=== PATIENT | male | born 1950 | race Caucasian/White ===

== ENCOUNTER 2023-03-01 11:20 | Outpatient (OUT) | payer MEDICARE, OTHER, SELFPAY ==
--- NOTE | 2023-03-01 11:25 | MR_ITS ---
[place] [id number] Patient Name: JAVIER BEAUCHAMP MRN: [id number] date: 1950 Sex: M Assigned Patient Location: LAB Current Patient Location: LAB Accession/Order Number: [id number] Exam Date: 03/01/2023 12:05 Report Date: 03/01/2023 13:58 At the request of: NON-STAFF PHYSICIAN Procedure: MR lumbar spine wo/w con MRI LUMBAR SPINE WITH AND WITHOUT CONTRAST, 03/01/2023. HISTORY: Lumbar radiculopathy. Low back pain. Hip pain. Previous lumbar spine surgery. COMPARISON: None. TECHNIQUE: Multiplanar, multisequence MRI imaging of the lumbar spine with and without contrast. FINDINGS: There are postoperative changes from pedicle screw and forrest fixation at L4-5 and L5-S1. There is good fusion across the facet joints at these levels. Alignment appears normal. No spondylolisthesis. No acute compression fracture. Signal in the bone marrow spaces is normal. No bone marrow edema. L5-S1, spinal canal is decompressed. There is no spinal stenosis. No foraminal narrowing. L4-5, there is good osseous fusion at this level. The spinal canal is decompressed. No spinal stenosis. No significant foraminal narrowing. L3-4, mild degenerative disc disease. No spinal canal stenosis. No foraminal narrowing. L2-3, severe facet arthropathy. There is facet hypertrophy and ligamentum flavum thickening. Moderate degenerative disc disease. Diffuse disc bulge. There is moderate spinal canal stenosis. Mild bilateral foraminal narrowing. L1-2, mild degenerative disc disease. No spinal stenosis. No foraminal narrowing. No abnormal signal or pathologic enhancement in the conus medullaris. No pathologic enhancement of the cauda equina. No paraspinal masses. MR/MR lumbar spine wo/w con IMPRESSION: 1. There are postoperative changes from previous posterior lumbar fixation and fusion at L4-5 and L5-S1. There is good fusion at these levels. No spinal stenosis or foraminal narrowing. 2. At L2-3, there is severe facet arthropathy and moderate degenerative disc disease. There is disc bulge as well as facet hypertrophy and ligamentum flavum thickening. Moderate spinal stenosis and mild bilateral foraminal narrowing. 3. No acute compression fractures. No pathologic enhancement. Electronically authenticated by: LAURITA CAMERON Date: 03/01/2023 13:58
--- NOTE | 2023-03-01 11:31 | XR_ITS ---
The [address] [address] Patient Name: JAVIER BEAUCHAMP MRN: [id number] date: 1950 Sex: M Assigned Patient Location: LAB Current Patient Location: LAB Accession/Order Number: [id number] Exam Date: 03/01/2023 11:47 Report Date: 03/01/2023 12:06 At the request of: NON-STAFF PHYSICIAN Procedure: XR lumbar spine 2-3V EXAMINATION: XR lumbar spine 2-3V HISTORY: Bilateral Hip Pain M25.551, M25.552 COMPARISON: No relevant comparison available. FINDINGS: BONES: Normal alignment with no acute fracture or spondylolisthesis. Posterior decompression bilateral transpedicular fusion L4-S1. No mechanical failure. Moderate degenerative spondylosis and facet osteoarthropathy DISC SPACES: Fusion L4-5 and L5-S1 PARASPINOUS: Negative. No paraspinous abnormality is seen. OTHER: Vascular calcifications XR/XR lumbar spine 2-3V IMPRESSION: Moderate degenerative changes with lumbosacral fusion Electronically authenticated by: KAITLYN RENTERIA Date: 03/01/2023 12:06
--- NOTE | 2023-03-01 11:31 | XR_ITS ---
The [address] [address] Patient Name: JAVIER BEAUCHAMP MRN: [id number] date: 1950 Sex: M Assigned Patient Location: LAB Current Patient Location: LAB Accession/Order Number: [id number] Exam Date: 03/01/2023 11:47 Report Date: 03/01/2023 12:05 At the request of: NON-STAFF PHYSICIAN Procedure: XR hip BETSEY EXAMINATION: XR hip BETSEY HISTORY: Bilateral Hip Pain M25.551, M25.552 COMPARISON: No relevant comparison available. FINDINGS: RIGHT FINDINGS: BONES: No acute fracture or dislocation. Moderate osteoarthropathy with joint space narrowing and marginal osteophyte formation SOFT TISSUES: Negative. No visible soft tissue swelling. OTHER: Negative. LEFT FINDINGS: BONES: No acute fracture or dislocation. Moderate osteoarthropathy with joint space narrowing and marginal osteophyte formation SOFT TISSUES: Negative. No visible soft tissue swelling. OTHER: Negative. XR/XR hip BETSEY IMPRESSION: RIGHT CONCLUSION: Moderate osteoarthritis LEFT CONCLUSION: Moderate osteoarthritis Electronically authenticated by: KAITLYN RENTERIA Date: 03/01/2023 12:05
[2023-03-01 11:35] LABS: Estimated GFR (African America 53 (>=60); Estimated GFR (Non-African Ame 44 (>=60)
== END 2023-03-01 11:21 | disposition home or self-care (01) ==
LOC: LAB 11:20
PROVIDERS: PCP Physician Assistant
DX: M96.1 Postlaminectomy syndrome, not elsewhere classified (principal); M51.36 Other intervertebral disc degeneration, lumbar region
CPT/HCPCS: 36415; 72100; 72158; 73522; 82565; A9575

== ENCOUNTER 2025-02-09 15:20 | Outpatient (OUT) | payer MEDICARE, SELFPAY ==
--- OUTSIDE RECORDS SUMMARY | 2024-01-13 11:30 | XMS_ITS ---
Author Organization [facility] vices Address [address] [place], [place] [address] Care Team Providers Care Watch Dial Stoner Name Role Phone Maura Raymond Primary Care Provider REASON FOR VISIT 3 month DM Social History Sex Assigned At : Social History Observation Description Sex Assigned At Male Encounters Encounter Location Date Provider Diagnosis Main [address] [place], [place] [id number] 01/13/2024 Maura Raymond Plan Of Treatment Next Appt Details Provider Name:Maura Raymond, 02/22/2025 02:30:00 PM, [address] [place], [place], [id number], Progress Notes * Damián VIDAL CDOB: [birth year] (74 yo M)Acc No.[id number]:01/13/2024 Medical Note Patient: Marcos Damián mendez :?Maura Raymond MDDOB:1950???Age:73 Y???Sex: MaleDate:01/13/2024hone:[phone]:[address] [place], [place] Subjective: * Chief Complaints: * 3 month DM Billing Information: * Procedure Codes: * Electronic signature of Maura Raymond MD on 02/09/2025 at 03:28 PM ESTSign off status: Pending * Provider: Zuri Raymond MD Date: 03/15/2023 Generated for Printing/Faxing/eTransmitting on:?02/09/2025 03:28 PM EST
--- OUTSIDE RECORDS SUMMARY | 2025-02-08 07:17 | XMS_ITS | Encounter Summary ---
Author Organization [facility] tem Address [id number] [address] [place] [address] Care Team Providers Care Pin Pusher Name Role Phone Maura Raymond MD Primary Care Provider [phone] Reason for Visit * Auth/Cert (Routine)SpecialtyDiagnoses / ProceduresReferred By ContactReferred To Contact Referral IDStatusReasonStart DateExpiration DateVisits RequestedVisits [id number] Encounter Details DateTypeDepartmentCare Team (Latest Contact Info)Fguuibrbwij08/29/2025 7:17 AM ESTHospital Encounter [facility] [address] [place] [address] Arrived Social History Tobacco UseTypesPacks/DayYears UsedDateSmoking Tobacco: YvvtpbLobtzjqqcn1Rvhl: 08/16/1993Smokeless Tobacco: NeverAlcohol UseStandard Drinks/WeekCommentsYes0 (1 standard drink = 0.6 oz pure alcohol)rarelyChildcareAnswerDate RecordedChildcare Afvnhjb9907/23/2018EmploymentAnswerDate KjdsmevnVlfnzxipanRtajbhn20/12/2019Hunger ScreeningAnswerDate RecordedWithin the past 12 months we worried whether our food would run out before we got money to buy more.Never True01/13/2025Within the past 12 months the food we bought just didn't last and we didn't have money to get more.Never True01/13/2025Purpose - LifeAnswerDate RecordedPurpose and direction in vngjZqvhryk97/11/2021ex and Gender InformationValueDate Recorded Sex Assigned at BirthNot on fileLegal JobXmdu2709/16/2014 11:46 AM EDTGender IdentityNot on fileSexual OrientationNot on filedocumented as of this encounter Plan of Treatment DateTypeDepartmentCare Team (Latest Contact Info)Gphuhfdckwd28/20/2026 1:30 PM ESTOffice Visit [facility] [address] [place] [address] Maykel Islas MD [address] [place] [address] documented as of this encounter Procedures Procedure NamePriorityDate/TimeAssociated DiagnosisCommentsNUC STRESS LEXISCAN Fniuxfl4702/08/2025 10:39 AM EST Chest discomfort documented in this encounter Results * Nuc stress Lexiscan (02/08/2025 10:39 AM EST)ComponentValueRef RangeTest MethodAnalysis TimePerformed AtPathologist SignatureTarget TR511mcdTQWHSATWFH LT80zdjKWPCNPPSJASlmqja peak VE37cxsFEMRKHHYSAXyuthacv Systolic BM093eeNo SECTRAIECGDiastolic SU44zhZdUEPQHXHQYKDlngbu peak systolic IT661xgHoHVZGMESNHH Diastolic CG96avGuAXWDPAOFGUDI41zrvTOFNKZKUKWEkqsjl recovery systolic BP149 mmHgSECTRAIECGDiastolic YY08lfLoXREKHQUCFDDzkjwkr HR56%SECTRAIECGNuc Stress EF 69%SECTRAIECGEnd diastolic volume (mL)120mLSECTRAIECGEnd systolic volume (mL) 09pKYWJCLYNLIFXFP5.19SECTRAIECGAnatomical RegionLateralityModalityChestN/A Nuclear Medicine, Nuclear MedicineSpecimen (Source)Anatomical Location / LateralityCollection Method / VolumeCollection TimeReceived Time Narrative 02/08/2025 10:08 PM EST Abnormal study with findings suggestive of stress induced myocardial ischemia in the inferior wall by SPECT MPI criteria ?Calculated LVEF 69% ?Stress ECG without evidence of stress induced myocardial ischemia by ECG criteria ?No visual evidence of transient ischemic dilatation. ??Calculated TID ratio 1.19 within normal limits. ?Summed difference score 5 suggests a moderate burden of ischemia ?At least intermediate risk study overall ?Correlate clinically ?Attenuation artifact noted; decreases sensitivity of findings Stress Findings A Lexiscan protocol was performed. A pharmacological stress test was performed using regadenoson. The patient reported dyspnea, nausea and flushing during the stress test. Symptoms began during stress and ended during recovery. Isotope Administration The isotope used for nuclear imaging was technetium sestamibi. Imaging was performed at rest after an administration on 02/08/2025 at 07:30 EST of 10.3 mCi. Imaging was performed at peak stress afteran administration on 02/08/2025 at 09:08 EST of 30.2 mCi. Nuclear Study Quality A Lexiscan protocol was performed. Perfusion Defect Conclusion TID ratio is 1.19. Stress Function Comments Stress ejection fraction is 69%. Authorizing ProviderResult TypeResult StatusRamreina Raymond [facility] [place]ESS [place]AB[place] Final Result documented in this encounter Visit Diagnoses Not on filedocumented in this encounter Care Teams Team MemberRelationshipSpecialtyStart DateEnd Date Maura Raymond MD [address] [place] [address] PCP - GeneralInternal Medicine07/10/24documented as of this encounter
--- OUTSIDE RECORDS SUMMARY | 2025-02-08 07:17 | XMS_ITS | Encounter Summary ---
Author Organization [facility] [employer] [facility] tem Address [id number] [address] [place] [address] Care Team Providers Care Real Estate Agency Licensee Name Role Phone Maura Raymond MD Primary Care Provider Reason for Referral * Cardiology (Routine) - AuthorizedSpecialtyDiagnoses / ProceduresReferred By ContactReferred To Contact Diagnoses Chest discomfort Procedures Nuc stress Lexiscan Maura Raymond MD [address] [place] [address] Phone: tel: fax: Referral IDStatusReasonStart DateExpiration DateVisits RequestedVisits [id number]/2/202512/2/202655 Reason for Visit * Auth/Cert (Routine)SpecialtyDiagnoses / ProceduresReferred By ContactReferred To Contact Referral IDStatusReasonStart DateExpiration DateVisits RequestedVisits [id number] Encounter Details DateTypeDepartmentCare Team (Latest Contact Info)Ruzvaovkfjn29/29/2025 7:17 AM ESTHospital Encounter [facility] - [facility] Imaging [address] [place] [phone] Chest discomfort Social History Tobacco UseTypesPacks/DayYears UsedDateSmoking Tobacco: UhwapmDtkiztlink3Ltpe: 08/16/1993Smokeless Tobacco: NeverAlcohol UseStandard Drinks/WeekCommentsYes0 (1 standard drink = 0.6 oz pure alcohol)rarelyChildcareAnswerDate RecordedChildcare Utgkncs6307/23/2018EmploymentAnswerDate WlvrgyffPsksypvtuaFvyivph05/12/2019Hunger ScreeningAnswerDate RecordedWithin the past 12 months we worried whether our food would run out before we got money to buy more.Never True01/13/2025Within the past 12 months the food we bought just didn't last and we didn't have money to get more.Never True01/13/2025Purpose - LifeAnswerDate RecordedPurpose and direction in misjTmlalqh75/11/2021Sex and Gender InformationValueDate Recorded Sex Assigned at BirthNot on fileLegal UzeDroo9609/16/2014 11:46 AM EDTGender IdentityNot on fileSexual OrientationNot on filedocumented as of this encounter Plan of Treatment DateTypeDepartmentCare Team (Latest Contact Info)Cxytnneccmh98/20/2026 1:30 PM ESTOffice Visit [facility] [address] [place] [phone] Maykel Islas MD [address] [place] [address] documented as of this encounter Procedures Procedure NamePriorityDate/TimeAssociated DiagnosisCommentsNUC STRESS LEXISCAN Mofvhuf5602/08/2025 10:39 AM EST Chest discomfort documented in this encounter Results * Nuc stress Lexiscan (02/08/2025 10:39 AM EST)ComponentValueRef RangeTest MethodAnalysis TimePerformed AtPathologist SignatureTarget VB928hmoNNDZINOLKB VE61eflRWJRQYBUVIBtdrch peak IR76twlTCVRQGJHUAQygneosp Systolic SN148fjTk SECTRAIECGDiastolic RF97loGaEEXIGDDXXCGqwnlr peak systolic UL018yqHnQEQXWONITP Diastolic OZ51yqDyWCZHKWWONCRO06iziDTCMGJNAZISrtcsl recovery systolic BP149 mmHgSECTRAIECGDiastolic FR44btWtFZEYUBHIGEEwhnyun HR56%SECTRAIECGNuc Stress EF 69%SECTRAIECGEnd diastolic volume (mL)120mLSECTRAIECGEnd systolic volume (mL) 49oCRFKTIEZDNRDHY2.19SECTRAIECGAnatomical RegionLateralityModalityChestN/A Nuclear Medicine, Nuclear MedicineSpecimen (Source)Anatomical Location [...] ejection fraction is 69%. Authorizing ProviderResult TypeResult StatusRamsha Segundo [facility] [place] [facility] [place] Final Result documented in this encounter Visit Diagnoses Diagnosis Chest discomfort Other chest pain documented in this encounter Administered Medications Medication OrderMAR ActionAction DateDoseRateSite kit for Tc 99m-sestamibi injection 10 millicurie 10 millicurie, intravenous, Once in imaging, contrast, Radiopharmaceutical, Starting on Sat02/08/25 at 0735, For 1 dose, Indications: diagnostic imaging Indications:diagnostic jmeljnbJxdde05/29/2025 7:30 AM EST10 millicuries kit for Tc 99m-sestamibi injection 30 millicurie 30 millicurie, intravenous, Once in imaging, contrast, Radiopharmaceutical, Starting on Sat02/08/25 at 0735, For 1 dose, Indications: diagnostic imaging Indications:diagnostic prrblstBgrch06/29/2025 9:08 AM EST30 millicuries sodium chloride 0.9 % flush 10 mL 10 mL, intravenous, Once in imaging, line care, Nuclear Medicine, Starting on Sat02/08/25 at 0735,For 1 dose Given02/08/2025 9:08 AM EST10 mL sodium chloride 0.9 % flush 10 mL 10 mL, intravenous, Once in imaging, line care, Nuclear Medicine, Starting on Sat02/08/25 at 0735,For 1 dose Given02/08/2025 7:30 AM EST10 mLdocumented in this encounter Care Teams Team MemberRelationshipSpecialtyStart DateEnd Date Maura Raymond MD [address] [place] [address] PCP - GeneralInternal Medicine07/10/24documented as of this encounter
--- OUTSIDE RECORDS SUMMARY | 2025-02-08 08:45 | XMS_ITS | Encounter Summary ---
Author Organization [facility] tem Address [id number] [address] [place] [address] Care Team Providers Care Pharmacovigilance Specialist Name Role Phone Maura Raymond MD Primary Care Provider [phone] Reason for Visit * Auth/Cert (Routine)SpecialtyDiagnoses / ProceduresReferred By ContactReferred To Contact Referral IDStatusReasonStart DateExpiration DateVisits RequestedVisits [id number] Encounter Details DateTypeDepartmentCare Team (Latest Contact Info)Kktzydljcas42/29/2025 8:45 AM EST - 02/08/2025 9:44 AM ESTHospital Encounter [facility] - Cardiovascular [address] [place] [phone] Arrived Discharge Disposition: Still a Patient Social History Tobacco UseTypesPacks/DayYears UsedDateSmoking Tobacco: AmiptkUuuodejlcv8Ilnx: 08/16/1993Smokeless Tobacco: NeverAlcohol UseStandard Drinks/WeekCommentsYes0 (1 standard drink = 0.6 oz pure alcohol)rarelyChildcareAnswerDate RecordedChildcare Gfekpjw9207/23/2018EmploymentAnswerDate HcqbfuuqYgmriojmtlPgqzpfl57/12/2019Hunger ScreeningAnswerDate RecordedWithin the past 12 months we worried whether our food would run out before we got money to buy more.Never True01/13/2025Within the past 12 months the food we bought just didn't last and we didn't have money to get more.Never True01/13/2025Purpose - LifeAnswerDate RecordedPurpose and direction in zzhiOwiaibp57/11/2021ex and Gender InformationValueDate Recorded Sex Assigned at BirthNot on fileLegal FwfUuyh3909/16/2014 11:46 AM EDTGender IdentityNot on fileSexual OrientationNot on filedocumented as of this encounter Functional Status * Samaniego Fall RiskQuestionAnswerDate of AssessmentAuthorHistory of Falling0 02/08/2025 6:28 AM Zamzam Olmstead RNSecondary Exstrcmaa0578/29/2025 6:28 AM Zamzam Olmstead RNAmbulatory Iqox748 6:28 AM Zamzam Olmstead RNIntravenous Therapy/Heparin/Saline Oimp7264 6:28 AM Zamzam Maradiaga RNGait/Oxssdchilhkh585/29/2025 6:28 AM Zamzam Olmstead RNMental Hltikq898 6:28 AM Zamzam Olmstead RNScore3502/08/2025 6:28 AM Zamzam Olmstead RN * Fall Risk ScaleQuestionAnswerDate of AssessmentAuthorFall Risk ScaleMorse Fall Risk Scale02/08/2025 6:28 AM Zamzam Olmstead RN * Respiratory (WDL)AnswerDate of AxkwjysuenGlbomtCBI12/29/2025 6:28 AM Zamzam Maradiaga RN documented as of this encounter Mental Status * Patient ID/EducationQuestionAnswerEntry DateAuthorPatient (parent/legal gaurdian) exam education completed at appropriate level of understanding - opp ortunity to ask questions offered.Yes02/08/2025 6:24 AM Zamzam Olmstead RN documented in this encounter Medications at Time of Discharge MedicationSigDispense QuantityRefillsLast FilledStart DateEnd Date amLODIPine (NORVASC) 5 mg tablet 0.5 tablets (2.5 mg total).11/23/2016 ascorbic acid, vitamin C, (VITAMIN C) 1000 mg tablet Take 1 tablet (1,000 mg total) by mouth in the morning. b complex vitamins capsule Take 1 capsule by mouth in the morning. cholecalciferol, vitamin D3, 5,000 units tablet Take 1 tablet (5,000 Units total) by mouth in the morning. cyclobenzaprine (FLEXERIL) 10 mg tablet Take 1 tablet (10 mg total) by mouth daily as needed for muscle spasms. furosemide (LASIX) 40 mg tablet Take 0.5 tablets (20 mg total) by mouth daily.03/04/2019 hydroCHLOROthiazide (HYDRODIURIL) 25 mg tablet Take 1 tablet (25 mg total) by mouth daily.03/22/2022 lisinopriL (PRINIVIL,ZESTRIL) 30 mg tablet Take 1 tablet (30 mg total) by mouth in the morning.03/22/2022 lovastatin (MEVACOR) 40 mg tablet Take 2 tablets (80 mg total) by mouth nightly.11/23/2016 lycopene/lutein/fruit extracts (FRUIT AND VEGETABLE DAILY ORAL) Take 1 tablet by mouth in the morning. meloxicam (MOBIC) 7.5 mg tablet Take 1 tablet (7.5 mg total) by mouth in the morning. 30 tablet MULTIVITAMIN ORAL Take 1 tablet by mouth in the morning. lpuswsrn-okebtcnbhXo-mcespxswS (NEOSPORIN) 3.5-400-5,000 mz-yvbo-xdsd ointment Apply 1 Application topically in the morning and 1 Application before bedtime. omega-3 fatty acids-fish oil (FISH OIL) 300-1,000 mg capsule Take 1 capsule (1 g total) by mouth in the morning. oxyCODONE-acetaminophen (PERCOCET) 5-325 mg per tablet Take 1 tablet by mouth every 12 (twelve) hours as needed for pain. potassium chloride 20 mEq tablet extended release Take 1 tablet (20 mEq total) by mouth in the morning.03/20/2019 tamsulosin (FLOMAX) 0.4 mg capsule Take 1 capsule (0.4 mg total) by mouth nightly. testosterone pellet 100 mg pellet Inject 1 each (100 mg total) under the skin once. Every 4 months VENTOLIN HFA 90 mcg/actuation inhaler 02/20/2019 vitamin E 100 units capsule Take 1 capsule (100 Units total) by mouth in the morning.documented as of this encounter Plan of Treatment DateTypeDepartmentCare Team (Latest Contact Info)Krmzyxwxntb19/20/2026 1:30 PM ESTOffice Visit [facility] [address] [place] [address] Maykel Islas MD [address] [place] [address] documented as of this encounter Procedures Procedure NamePriorityDate/TimeAssociated DiagnosisCommentsNUC STRESS LEXISCAN Hsaglzi4002/08/2025 10:39 AM EST Chest discomfort documented in this encounter Visit Diagnoses Not on filedocumented in this encounter Administered Medications Medication OrderMAR ActionAction DateDoseRateSite regadenoson (LEXISCAN) injection 0.4 mg 0.4 mg, intravenous, Once, On Sat02/08/25 at 0730, For 1 dose, Administer over 10 seconds followedby 5 mL saline flush. Given02/08/2025 9:08 AM EST0.4 mgdocumented in this encounter Care Teams Team MemberRelationshipSpecialtyStart DateEnd Date Maura Raymond MD [address] [place] [address] PCP - GeneralInternal Medicine07/10/24documented as of this encounter
--- OUTSIDE RECORDS SUMMARY | 2025-02-08 09:45 | XMS_ITS | Encounter Summary ---
Author Organization [facility] tem Address [facility] [address] [place] [address] Care Team Providers Care Adventure Guide Name Role Phone Maura Raymond MD Primary Care Provider [phone] Reason for Visit * Auth/Cert (Routine)SpecialtyDiagnoses / ProceduresReferred By ContactReferred To Contact Referral IDStatusReasonStart DateExpiration DateVisits RequestedVisits [id number] Encounter Details DateTypeDepartmentCare Team (Latest Contact Info)Tudsruoqgas98/29/2025 9:45 AM ESTHospital Encounter [facility] - Stress Imaging [address] [place] [address] Arrived Social History Tobacco UseTypesPacks/DayYears UsedDateSmoking Tobacco: NvhhxvQwetwrqmgu6Vwfi: 08/16/1993Smokeless Tobacco: NeverAlcohol UseStandard Drinks/WeekCommentsYes0 (1 standard drink = 0.6 oz pure alcohol)rarelyChildcareAnswerDate RecordedChildcare Dcvevtj4507/23/2018EmploymentAnswerDate RroszwtsXtfqjfeqozVlwloar98/12/2019Hunger ScreeningAnswerDate RecordedWithin the past 12 months we worried whether our food would run out before we got money to buy more.Never True01/13/2025Within the past 12 months the food we bought just didn't last and we didn't have money to get more.Never True01/13/2025Purpose - LifeAnswerDate RecordedPurpose and direction in vxwtBqonnbw63/11/2021ex and Gender InformationValueDate Recorded Sex Assigned at BirthNot on fileLegal UniHgmx0009/16/2014 11:46 AM EDTGender IdentityNot on fileSexual OrientationNot on filedocumented as of this encounter Plan of Treatment DateTypeDepartmentCare Team (Latest Contact Info)Ezhqnujzluh62/20/2026 1:30 PM ESTOffice Visit [facility] [address] [place] [address] Maykel Islas MD [address] [place] [address] documented as of this encounter Procedures Procedure NamePriorityDate/TimeAssociated DiagnosisCommentsNUC STRESS LEXISCAN Gcldzpz2302/08/2025 10:39 AM EST Chest discomfort documented in this encounter Results * Nuc stress Lexiscan (02/08/2025 10:39 AM EST)ComponentValueRef RangeTest MethodAnalysis TimePerformed AtPathologist SignatureTarget PX366zbbGMYECHQGCB SK83gmgOXCAZMIBPFMvqsdi peak YI96pafORFPEYQJHMIznaqfua Systolic ZI771dePg SECTRAIECGDiastolic VM15bfFjIGFKEITZSLHmyxee peak systolic EE962tpYgFQYRSALQOG Diastolic LM37ztVrQMGAXGNSEADC75tobOHRBSVQDVUPrhitd recovery systolic BP149 mmHgSECTRAIECGDiastolic OI98uwGzWNSUKSEPYJCynxnkm HR56%SECTRAIECGNuc Stress EF 69%SECTRAIECGEnd diastolic volume (mL)120mLSECTRAIECGEnd systolic volume (mL) 46yADXHSBIBEFZRFG1.19SECTRAIECGAnatomical RegionLateralityModalityChestN/A Nuclear Medicine, Nuclear MedicineSpecimen (Source)Anatomical Location [...] is 69%. Authorizing ProviderResult TypeResult StatusRamreina Raymond [facility] [place] STRESS ORDERABLES Final Result documented in this encounter Visit Diagnoses Not on filedocumented in this encounter Care Teams Team MemberRelationshipSpecialtyStart DateEnd Date Maura Raymond MD [address] [place] [address] PCP - GeneralInternal Medicine07/10/24documented as of this encounter
--- OUTSIDE RECORDS SUMMARY | 2025-02-09 15:28 | XMS_ITS | Patient Health Record ---
Author Organization [facility] in [place] Address [address] [place] [address] Care Team Providers Care Sulfate Drier Machine Operator Name Role Phone None, Unknown or Primary Care Provider Unavailab le Reason For Referral No Information Plan Of Treatment No Information Insurance Providers Payer Name Payer Address Payer Phone Subscriber Number Group Number Insured Name Patient Relationship to Insured Coverage Start Date Coverage End Date [facility] [address] [place] [address] [id number] Damián Vidal Self - patient is the insured 3 [place] [id number] Lisandra Vidalelf - patient is the [id number] 2012
--- OUTSIDE RECORDS SUMMARY | 2025-02-09 15:29 | XMS_ITS | Clinical Summary ---
Author Organization [facility] Address [address] [place] [address] Phone Care Team Providers Care Insulator Tester Name Role Phone Unavailable Primary Care Provider Unavailabl e Social History Tobacco UseTypesPacks/DayYears UsedDateSmoking Tobacco: Never AssessedSex and Gender InformationValueDate RecordedSex Assigned at BirthNot on fileLegal Sex Male01/06/2022 2:53 AM ESTGender IdentityNot on fileSexual OrientationNot on file Plan of Treatment Health MaintenanceDue DateLast DoneCommentsCT Bojtxdaegrvn37/22/1951olonoscopy 1950olorectal Cancer Iqfbjxbbv91/22/1951FIT-DNA (Cologuard)1950FIT 1950ipid Panel1950Medicare Annual Wellness Visit (AWV)1950 Rjlpzsqtnrpjk52/22/1951MMR Vaccines (1 of 1 - Standard series)10/03/1951 Hepatitis C Hmmryabmp79/22/1969DTaP/Tdap/Td Vaccines (1 - Tdap)1972 Pneumococcal Vaccine (1 of 1 - PCV)2000Zoster Vaccines (1 of 2)2000 COVID-19 Vaccine (1 - 2024- season)2024Influenza Vaccine (#1)2024 RSV High Risk: (Elderly (60+) or Population) (1 - 1-dose 75+ series) 2025HIB VaccinesAged OutNo longer eligible based on patient's age to complete this topicHPV VaccinesAged OutNo longer eligible based on patient's age to complete this topicHepatitis A VaccinesAged OutNo longer eligible based on patient's age to complete this topicHepatitis B VaccinesAged OutNo longer eligible based on patient's age to complete this topicIPV VaccinesAged OutNo longer eligible based on patient's age to complete this topicMeningococcal VaccineAged OutNo longer eligible based on patient's age to complete this topic Rotavirus VaccinesAged OutNo longer eligible based on patient's age to complete this topic Insurance
--- OUTSIDE RECORDS SUMMARY | 2025-02-09 15:29 | XMS_ITS | Clinical Summary ---
Author Organization [facility] tem Address [id number] [address] [place] [address] Care Team Providers Care Line Installer Trolley Name Role Phone Maura Raymond MD Primary Care Provider [phone] Allergies No known active allergies Medications MedicationSigDispense QuantityRefillsLast FilledStart DateEnd DateStatus amLODIPine (NORVASC) 5 mg tablet 0.5 tablets (2.5 mg total).11/23/2016Active lovastatin (MEVACOR) 40 mg tablet Take 2 tablets (80 mg total) by mouth nightly.11/23/2016Active omega-3 fatty acids-fish oil (FISH OIL) 300-1,000 mg capsule Take 1 capsule (1 g total) by mouth in the morning.Active furosemide (LASIX) 40 mg tablet Take 0.5 tablets (20 mg total) by mouth daily.03/04/2019Active potassium chloride 20 mEq tablet extended release Take 1 tablet (20 mEq total) by mouth in the morning.03/20/2019Active VENTOLIN HFA 90 mcg/actuation inhaler 02/20/2019Active vitamin E 100 units capsule Take 1 capsule (100 Units total) by mouth in the morning.Active lisinopriL (PRINIVIL,ZESTRIL) 30 mg tablet Take 1 tablet (30 mg total) by mouth in the morning.03/22/2022ctive hydroCHLOROthiazide (HYDRODIURIL) 25 mg tablet Take 1 tablet (25 mg total) by mouth daily.03/22/2022ctive cholecalciferol, vitamin D3, 5,000 units tablet Take 1 tablet (5,000 Units total) by mouth in the morning.Active cyclobenzaprine (FLEXERIL) 10 mg tablet Take 1 tablet (10 mg total) by mouth daily as needed for muscle spasms.Active MULTIVITAMIN ORAL Take 1 tablet by mouth in the morning.Active oxyCODONE-acetaminophen (PERCOCET) 5-325 mg per tablet Take 1 tablet by mouth every 12 (twelve) hours as needed for pain.Active testosterone pellet 100 mg pellet Inject 1 each (100 mg total) under the skin once. Every 4 monthsActive ascorbic acid, vitamin C, (VITAMIN C) 1000 mg tablet Take 1 tablet (1,000 mg total) by mouth in the morning.Active b complex vitamins capsule Take 1 capsule by mouth in the morning.Active lycopene/lutein/fruit extracts (FRUIT AND VEGETABLE DAILY ORAL) Take 1 tablet by mouth in the morning.Active kvnopdge-lvlxnfuiyUs-zgvnsoyuA (NEOSPORIN) 3.5-400-5,000 ic-comu-kyca ointment Apply 1 Application topically in the morning and 1 Application before bedtime. Active tamsulosin (FLOMAX) 0.4 mg capsule Take 1 capsule (0.4 mg total) by mouth nightly.Active meloxicam (MOBIC) 7.5 mg tablet Take 1 tablet (7.5 mg total) by mouth in the morning. 30 tablet 5Active Active Problems ProblemNoted DateDiagnosed DateDisorder of xcqmes5212/16/2024Lumbar post- laminectomy ffkeogvu12/16/2025Unspecified mononeuropathy of bilateral lower limbs12/11/2023Lumbar dxgwztabzzq44/08/3629Igjkthbalfjk07/20/2021Essential fhjdtxglwggy16/01/2021Mixed guifknxkphnwbo68/01/2021Abnormal stress test 03/28/20183825Unmemvbgzzz23/15/2019Hypogonadism in male11/21/2016 Overview (12/25/2017): He was seen by [employer] [employer] March 15 and diagnosed with leukocytosis and polycythemia. He wastold that we could restart his AndroGel. September 12: Patient on AndroGel. November 12: Patient restarted on AndroGel January 12: Elevated hematocrit at 54.1, free testosterone high 25.8 and total testosterone seven hundred thirty-six. Recommend referral to Endocrinology. ==== 12/25/2017 ==== off of androgel he only notices a min to modest difference. Will monitor Prostate cancer /11/2017 Overview (12/25/2017): ==== 12/25/2017 ==== PSA May 2017 0.76 Erectile xacykldzxcz29/11/2017 Overview (11/21/2016): September 12 013: Patient had tried Viagra and Cialis. Patient had been using Viagra Family history of prostate wymxil8411/21/2016Lower urinary tract symptoms 11/21/2016 Overview (12/25/2017): June 12 013: Status post uroflowmetry testing with maximum flow of 19 and postvoid residual 0 cc December 13: Status post uroflowmetry testing demonstrating excellent flow, slightly prolonged flow morphology incomplete bladder emptying. Subjective voiding symptoms are not problematic ==== 12/25/2017 ==== AUA symptom score 20/2. Frequent urinations with a moderate amount of urine voided. Has not tried alpha-madeline. PLAN: Will monitor with a repeat uroflow PVR next visit Encounters DateTypeDepartmentCare QlduQddizqxhdkf85/29/2025 9:45 AM ESTHospital Encounter [facility] [address] [place] [address] Qsuzsgx1602/08/2025 8:45 AM EST - 02/08/2025 9:44 AM ESTHospital Encounter [facility] [address] [place] [address] Arrived Discharge Disposition: Still a Ayhrtkz7002/08/2025 7:17 AM ESTHospital Encounter [facility] [address] [place] [address] Gsuosor6102/08/2025 7:17 AM ESTHospital Encounter [facility] [address] [place] [address] Chest yqxscfcgrh75/29/8246Qjxjld73/03/2025 8:45 AM ESTOffice Visit [facility] [address] [place] [address] Karley Hansen PA-C Lumbar post-laminectomy syndrome (Primary Dx); Disorder of sacrum; Lumbar ymkwyspieqt97/03/2025Telephone [facility] [address] [facility] [place] [address] Celena Young 01/13/20259249Ioinke36/21/2025 8:40 AM EST - 01/01/2025 8:47 AM ESTSurgery [facility] [address] [place] [address] Kirt Sanchez MD INJECTION BLOCK SACROILIAC JOINT [[id number] (CPT??)]01/01/2025 8:31 AM ESTAnesthesia Event [facility] [address] [place] [address] Jose Desai MD Miller, Alison Christine, APRN-[facility] 01/01/2025 7:43 AM EST - 01/01/2025 11:59 PM ESTHospital Encounter [facility] [address] [place] [address] Kirt Sanchez MD Discharge Disposition: Home01/01/2025 6:50 AM EST - 01/01/2025 7:42 AM EST Hospital Encounter [facility] [address] [place] [address] Kirt Sanchez MD Disorder of sacrum Discharge Disposition: Home12/16/2024 1:45 PM ESTOffice Visit [facility] [address] [place] [address] Karley Hansen PA-C Lumbar spondylosis (Primary Dx); Disorder of vcozvr4712/16/20249643Owsigv40/30/2025Travelfrom Last 3 Months Family History Medical HistoryRelationNameCommentsArthritisFatherRheum arthritisMotherRelation NameStatusCommentsFatherDeceasedMotherDeceased Social History Tobacco UseTypesPacks/DayYears UsedDateSmoking Tobacco: BeamjuBqteprkvjb1Msij: 08/16/1993Smokeless Tobacco: Never Tobacco Cessation:Counseling Given: Not Answered Alcohol UseStandard Drinks/WeekCommentsYes0 (1 standard drink = 0.6 oz pure alcohol)rarelyChildcareAnswerDate QlsxolhiSifkfmvipUrfshlx65/12/2019Employment AnswerDate WjyqwempZdvhlspkneRgbuebn57/12/2019Hunger ScreeningAnswerDate RecordedWithin the past 12 months we worried whether our food would run out before we got money to buy more.Never True01/13/2025Within the past 12 months the food we bought just didn't last and we didn't have money to get more.Never True01/13/2025Purpose - LifeAnswerDate RecordedPurpose and direction in life Ajrxyhi5903/24/2020ex and Gender InformationValueDate RecordedSex Assigned at BirthNot on fileLegal PsuZsnc3809/16/2014 11:46 AM EDTGender IdentityNot on file Sexual OrientationNot on file Last Filed Vital Signs Vital SignReadingTime TakenCommentsBlood Aczjppns718/9401/13/2025 9:08 AM EST Qhjjf477501/13/2025 9:08 AM GJOHbawokkixeg26.1 ??C (97 ??F)01/01/2025 8:00 AM EST Respiratory Vwha937503/16/2024 9:08 AM ESTOxygen Frrepastdu85%01/13/2025 9:08 AM ESTInhaled Oxygen Concentration--Uvttmh048.7 kg (244 lb)01/13/2025 9:08 AM EST Sxlsga867.3 cm (5' 11 )01/13/2025 9:08 AM ESTBody Mass Index34.03103/16/2024 9:08 AM EST Plan of Treatment DateTypeDepartmentCare Team (Latest Contact Info)Eqmmralxbeb29/20/2026 1:30 PM ESTOffice Visit [facility] [address] [place] [address] Maykel Islas MD [address] [place] [address] Health MaintenanceDue DateLast DoneCommentsDepression Koowkyqzo60/22/1963Adult BMI Follow Up Plan1968DTaP,Tdap and Td Vaccines (1 - Tdap)1969 Abdominal Aortic Aneurysm (AAA) Nyieiq2710/03/2015Fall Risk Rprzruqho40/22/2016 Zoster (Shingles) Vaccine (2 of 3)COVID-19 Vaccine (4 - season)/, 05/04/2020, 04/14/2020Influenza Vaccine /07/2020, 12/08/2018, 01/24/2017RSV ( or age 60+ yrs) (1 - 1-dose 75+ series)6Adult BMI Tqpbwmwmb93/04/2024Tobacco Gwzejdiet61/7026Vqmylpxcqpp25, 08/17/2022 Medical Devices ImplantedTypeAreaManufacturerDevice IdentifierShelf Expiration DateModel / Serial / LotBack Procedures Procedure NamePriorityDate/TimeAssociated DiagnosisCommentsNUC STRESS LEXISCAN Rmhucuy8002/08/2025 10:39 AM EST Chest discomfort FL FLUOROSCOPY UP TO 1 FQXUJdkyekl86/21/2025 8:39 AM EST Disorder of sacrum NM INJECTION,SACROILIAC JOINT01/01/2025 8:30 AM EST Disorder of sacrum Special Needs LM to arrive at 0740 MBQTMHHWMGQ30/07/2023 8:44 AM EDT from Last 3 Months or Most Recently Relevant to Health Maintenance Results * Nuc stress Lexiscan (02/08/2025 10:39 AM EST)ComponentValueRef RangeTest MethodAnalysis TimePerformed AtPathologist SignatureTarget ZX059dvbRCOZTXYYAU HA49syeOUHSTRDDMSGgefbp peak QV89vtzWYVERHXKGIScladzfr Systolic YB386ynOu SECTRAIECGDiastolic WO88rqTxQQPSIJJXPWFlenxp peak systolic TS568ozUpSNLOADKZTG Diastolic SV95dhAqMVUZHYVLNKUB17wveBNQYDKUTZAPuxwop recovery systolic BP149 mmHgSECTRAIECGDiastolic PA71eeMpPSNWSJTHDPNafykkh HR56%SECTRAIECGNuc Stress EF 69%SECTRAIECGEnd diastolic volume (mL)120mLSECTRAIECGEnd systolic volume (mL) 43nXEXGWGIQFTWSQE8.19SECTRAIECGAnatomical RegionLateralityModalityChestN/A Nuclear Medicine, Nuclear MedicineSpecimen (Source)Anatomical Location [...] ejection fraction is 69%. Authorizing ProviderResult TypeResult Chau Raymond MDCV STRESS ORDERABLES Final Result * Fluoroscopy less than one hour (01/01/2025 8:39 AM EST)Specimen (Source) Anatomical Location / LateralityCollection Method / VolumeCollection Time Received Time Narrative SYSTEMGENERATED, DOCUMENTATION - 01/01/2025 8:39 AM EST No Reading Required. This procedure does not require a formal dictation. Non-Radiologist provider performed procedures can be reviewed under Post-Op, Procedure or Progress notes. For full report details, please reach out to your physician. ??Effective 06/28/2020 this image will be visible to you in MyChart. Authorizing ProviderResult TypeResult Niko Sanchez MDIMG FLUOROSCOPY ORDERABLESFinal Result * Colonoscopy (08/17/2022 8:44 AM EDT)Specimen (Source)Anatomical Location / LateralityCollection Method / VolumeCollection TimeReceived Time08/17/2022 8:44 AM EDT Narrative PM CARDIOVASCULAR - 08/17/2022 9:34 AM EDT [facility] Patient Name: Damián Vidal ?? Procedure Date No Time: 08/17/2022 ?? CSN : [id number] Date of : 1950 Admit Type: Outpatient Age: 71 Room: [place] [address] Gender: Male Note Status: Finalized Attending MD: Ines Rivera , , Procedure: ? Colonoscopy Indications: ? High risk colon cancer surveillance: Personal history ? of colonic polyps Providers: ? Ines Rivera Referring MD: ?Ines Rivera Medicines: ? Monitored Anesthesia Care Complications: ? No immediate complications. Procedure: ? After I obtained informed consent, the scope was ? passed under direct vision. Throughout the procedure, ? the patient's blood pressure, pulse, and oxygen ? saturations were monitored continuously. The OLYMPUS ? [id number] #[id number] ADULT COLONOSCOPE was introduced ? through the anus and advanced to the cecum, identified ? by appendiceal orifice and ileocecal valve. The ? colonoscopy was performed without difficulty. The ? patient tolerated the procedure well. The quality of ? the bowel preparation was good. Findings: ? Two flat polyps were found in the sigmoid colon and transverse colon. ? The polyps were less than 5 mm in size. These polyps were removed with a ? hot snare. Resection and retrieval were complete. Estimated blood loss ? was minimal. ? Scattered inflammation was found in the cecum. Biopsies were taken with ? a cold forceps for histology. ? The exam was otherwise without abnormality on direct and retroflexion ? views. ? Many small and large-mouthed diverticula were found in the entire colon. Estimated Blood Loss: ??Estimated blood loss was minimal. Impression: ?- Two less than 5 mm polyps in the sigmoid colon and ? in the transverse colon, removed with a hot snare. ? Resected and retrieved. ? - Scattered inflammation was found in the cecum and ? hepatic flexure. Biopsied. ? - The examination was otherwise normal on direct and ? retroflexion views. Recommendation: ?- Await pathology results. Procedure Code(s): ? --- Professional --- ? 02586, Colonoscopy, flexible; with removal of ? tumor(s), polyp(s), or other lesion(s) by snare ? technique ? 89150, 59, Colonoscopy, flexible; with biopsy, single ? or multiple Diagnosis Code(s): ? --- Professional --- ? D12.5, Benign neoplasm of sigmoid colon ? D12.3, Benign neoplasm of transverse colon (hepatic flexure or splenic ? flexure) CPT copyright 2021 [employer]. All rights reserved. The codes documented in this report are preliminary and upon manager strategic marketing review may be revised to meet current compliance requirements. MD Ines Del Castillo, 08/17/2022 9:33:54 AM This report has been signed electronically.Ines Rivera Number of Addenda: 0 Note Initiated On: 08/17/2022 8:44 AM Procedure Note Ines Rivera MD - 08/17/2022 [facility] Patient Name: Damián Vidal Procedure Date No Time: 08/17/2022 [facility] : [id number] Date of : 1950 Admit Type: Outpatient Age: 71 Room: [place] [address] Gender: Male Note Status: Finalized Attending MD: Ines Rivera , , Procedure: Colonoscopy Indications: High risk colon cancer surveillance: Personalhistory of colonic polyps Providers: Ines Rivera Referring MD: Ines Rivera Medicines: Monitored Anesthesia Care Complications: No immediate complications. Procedure: After I obtained informed consent, the scope was passed under direct vision. Throughout theprocedure, the patient's blood pressure, pulse, and oxygen saturations were monitored continuously. Theaddwish CF-[id number] #[id number] ADULT COLONOSCOPE was introduced through the anus and advanced to the cecum,identified by appendiceal orifice and ileocecal valve. The colonoscopy was performed without difficulty. The patient tolerated the procedure well. The qualityof the bowel preparation was good. Findings: Two flat polyps were found in the sigmoid colon and transverse colon. The polyps were less than 5 mm in size. These polyps were removedwith a hot snare. Resection and retrieval were complete. Estimated bloodloss was minimal. Scattered inflammation was found in the cecum. Biopsies were takenwith a cold forceps for histology. The exam was otherwise without abnormality on direct and retroflexion views. Many small and large-mouthed diverticula were found in the entirecolon. Estimated Blood Loss: Estimated blood loss was minimal. Impression: - Two less than 5 mm polyps in the sigmoid colonand in the transverse colon, removed with a hot snare. Resected and retrieved. - Scattered inflammation was found in the cecum and hepatic flexure. Biopsied. - The examination was otherwise normal on directand retroflexion views. Recommendation: - Await pathology results. Procedure Code(s): --- Professional --- 27663, Colonoscopy, flexible; with removal of tumor(s), polyp(s), or other lesion(s) by snare technique 97570, 59, Colonoscopy, flexible; with biopsy,single or multiple Diagnosis Code(s): --- Professional --- D12.5, Benign neoplasm of sigmoid colon D12.3, Benign neoplasm of transverse colon (hepatic flexure orsplenic flexure) CPT copyright 2021 [employer]. All rights reserved. The codes documented in this report are preliminary and upon manager strategic marketing reviewmay be revised to meet current compliance requirements. MD Ines Del Castillo, 08/17/2022 9:33:54 AM This report has been signed electronically.Ines Rivera Number of Addenda: 0 Note Initiated On: 08/17/2022 8:44 AM Authorizing ProviderResult TypeResult StatusInes KRAUS PROCEDURE ORDERABLESFinal ResultPerforming OrganizationAddressCity/State/ZIP CodePhone Number PM CARDIOVASCULAR from Last 3 Months or Most Recently Relevant to Health Maintenance Insurance Care Teams Team MemberRelationshipSpecialtyStart DateEnd Date Maura Raymond MD [address] [place] [address] PCP - GeneralInternal Medicine07/10/24
--- OUTSIDE RECORDS SUMMARY | 2025-02-09 15:29 | XMS_ITS | Encounter Summary ---
Author Organization [facility] tem Address [id number] [address] [place] [address] Care Team Providers Care Screen Printing Stencil Preparer Name Role Phone Maura Raymond MD Primary Care Provider [phone] Encounter Details DateTypeDepartmentCare Team (Latest Contact Info)Hyrgzqbgces82/29/2025Travel Social History Tobacco UseTypesPacks/DayYears UsedDateSmoking Tobacco: VixfoeQwcfyhkolz4Xjcl: 08/16/1993Smokeless Tobacco: NeverAlcohol UseStandard Drinks/WeekCommentsYes0 (1 standard drink = 0.6 oz pure alcohol)rarelyChildcareAnswerDate RecordedChildcare Vwzkncv5007/23/2018EmploymentAnswerDate ToqdfwwvQytlcurqxnFtkkkzx91/12/2019Hunger ScreeningAnswerDate RecordedWithin the past 12 months we worried whether our food would run out before we got money to buy more.Never True01/13/2025Within the past 12 months the food we bought just didn't last and we didn't have money to get more.Never True01/13/2025Purpose - LifeAnswerDate RecordedPurpose and direction in bruoZppadez70/11/2021ex and Gender InformationValueDate Recorded Sex Assigned at BirthNot on fileLegal JxcXefr5009/16/2014 11:46 AM EDTGender IdentityNot on fileSexual OrientationNot on filedocumented as of this encounter Plan of Treatment DateTypeDepartmentCare Team (Latest Contact Info)Qhvjxqmmdvm77/20/2026 1:30 PM ESTOffice Visit [facility] [address] [place] [address] Maykel Islas MD [address] [place] [address] documented as of this encounter Visit Diagnoses Not on filedocumented in this encounter Care Teams Team MemberRelationshipSpecialtyStart DateEnd Date Maura Raymond MD [address] [place] [address] PCP - GeneralInternal Medicine07/10/24documented as of this encounter
--- OUTSIDE RECORDS SUMMARY | 2025-02-09 15:29 | XMS_ITS | Patient Health Record ---
Author Organization [facility] vices Address [address] [place], [place] [id number] Care Team Providers Care Livestock Trucker Name Role Phone SegundoMaura Primary Care Provider Allergies No Known Allergies Results Component Value Reference Range Flag Notes Lexiscan Stress Nuclear Test (Not yet reviewed by provider) Interpretation: Performing Lab: Notes/Report: HEMOGLOBIN A1C Reviewed date:01/14/2025 09:18:46 AM Interpretation: Performing Lab: Notes/Report: HEMOGLOBIN A1C 5.5 <5.7 % Prediabetes: 5.7% to 6.4% Diabetes: >6.4% Glycemic control for adults with diabetes: <7.0% Use with caution in patients with abnormal hemoglobin variants as the half-life of red blood cells and in vivo glycation rates are affected. AVERAGE WHOLE BLOOD QTSCTGR993<126 mg/dl UNLESS OTHERWISE INDICATED, ALL TESTING PERFORMED AT: [facility] [address] [place] [address] R&D ENGINEER: JUDITH ALLRED M.D. CLIA NUMBER [id number] CAP ACCREDITATION AUID [id number] CBC W/AUTO DIFF Reviewed date:01/14/2025 09:18:54 AM Interpretation: Performing Lab: Notes/Report:WBC9.73.6-11.0 THDS/CMMRBC4.984.40-6.10 MILL/UHYZPW22.713.0-18.0 G/DLHCT46.039-52 %RBZ6886-031 fLMCH31.526.0-32.0 kfIZSB66.131.0-36.0 g/dlRDW13.0 11.2-14.8 %IDREJLVY754292-569 K/uL Effective 11/16/2024; Units of Measure update to K/uL. Reference ranges remains the same. SJDDJAXMEOZ83.945-75 %GWHCOKFMRZW47.920-45 %LMONOCYTES8.50-13 %EOSINOPHILS1.10-5 %BASOPHILS0.90-2 %IMMATURE GRAN0.70-2 %ABS NEUTROPHILS6.831.9-8.0 K/uLABS LYMPHOCYTES1.730.9-5.2 K/uLABS MONOCYTES0.820.1-1.0 K/uLABS EOSINOPHILS0.110.0- 0.80 K/uLABS BASOPHILS0.090.0-0.2 K/uLABS IMMATURE GRAN0.070.00-0.06 K/uLH COMPREHENSIVE METABOLIC PANEL WITH GFR Reviewed date:01/14/2025 09:19:02 AM Interpretation: Performing Lab: Notes/Report:VRDRHXE79982-911 mg/zTIGTV644-81 mg/dLCALCIUM9.48.6-10.5 mg/dL CREATININE, BLOOD1.020.67-1.30 mg/dLeGFR (2020 CKD-EPI)77>59 mL/min/1.42z8MSRJUB 920567-772 mmol/LPOTASSIUM4.43.5-5.4 mmol/JARJVZDSK37984-575 mmol/LJT11277-52 mmol/LANION EDC302-92 mmol/LT. BILIRUBIN0.6<1.3 mg/dLALK HDUP5578-721 U/L NKK-MGFM475-58 U/LOHH-GQFM984-89 U/LT. PROTEIN6.56.0-8.3 g/dLALBUMIN4.43.5-5.2 g/dLLIPID PANEL WITH REFLEX TO DIRECT LDL Reviewed date:01/14/2025 09:18:39 AM Interpretation: Performing Lab: Notes/Report:RRVHJVSKPBB157213-428 mg/tCPHUXOLMXEZHAP45146-479 mg/dLVLDL-CHOL, PPJCIBMDOL01<30 mg/dLHDL-CHOL38>=40 mg/dLLLDL-CHOL, IPEWNVSALF530<130 mg/dLH ADULT LDL CHOLESTEROL CLASSIFICATION <100mg/dL Optimal 100-129mg/dL Near/Above Optimal 130-159mg/dL Borderline High >160mg/dL High Risk Desirable range <100 mg/dL for patients with CHD or diabetes and <70 mg/dL for diabetic patients with known heart disease. Direct LDL is recommended for patients with triglycerides >400. LDL/HDL3.5<5.0 LDL/HDL RATIO MALE FEMALE below average risk <2.3 <2.3 average risk <5.0 <4.1 moderate risk <7.1 <5.6 high risk >7.1 >5.6 CHOL/HDL5.22.0-4.5HEXT NON-VASC RT LIMITED Reviewed date:07/15/2024 12:55:24 PM Interpretation: Performing Lab: Notes/Report: SEE RESULTS BELOW Nonvascular ultrasound right gluteal regionPSA, TOTAL, 3RD GENERATION Reviewed date:07/14/2024 08:14:52 AM Interpretation: Performing Lab: Notes/Report:PSA, TOTAL0.7970-4.00 ng/mL Method: Kylie Liberty ECLIA PSA levels should not be interpreted as absolute evidence of disease, however it is widely accepted as an adjunctive test in the management of prostate cancer patients. Values obtained with different assay methods or kits can not be used interchangeably. A detectable PSA following radical prostatectomy is associated with eventual clinical disease recurrence in some, but not all patients. It may also be due to the presence of benign glands. The AUA defines biochemical recurrence as an initial PSA value >=0.2 ng/ml followed by a subsequent confirmatory PSA value >=0.2 ng/ml. UNLESS OTHERWISE INDICATED, ALL TESTING PERFORMED AT: [facility] [address] [place] [address] R&D ENGINEER: JUDITH ALLRED M.D. CLIA NUMBER [id number] CAP ACCREDITATION AUID [id number] Reason For Referral Reason reports swelling by pt but ultrasound not showing anything and recommendation are to get MRI of right hip if clinically needed, further eval and manage Diagnosis 1 Right buttock pain ( M79.18) Referral Organization Main Referring Provider First Name Maura Referring Provider Last Name Segundo Referring Provider Speciality Internal M edicine Referred Provider [facility] Referred Provider Specialty Orthopedics General Notes Charlie Pelletier 07/29 10:14:57 AM >referral fax sent, Charlie Pelletier 08/17/2024 10:13:59 AM >voice communication sent, Kacie Mccray 08/20/2024 01:20:45 PM >pt returned call, states he had an appt on 08-10-24, Charlie Pelletier 08/24/2024 07:42:15 AM >resent fax f/u, Charlie Pelletier 08/31/2024 09:14:26 AM >CANC due to no response Referral Priority Routine Referral Appointment Date 08/10/2024 Reason lexiscan ordered, ev al and manage Diagnosis 1 Chest discomfort (R0 7.89) Referral Organization Main Referring Provider First Name Maura Referring Provider Last Name Segundo Referring Provider Speciality Internal M edicine Referred Provider [facility] Referred Provider Specialty Cardiology General Notes Charlie Pelletier 01/25 07:51:47 AM EST > referral fax sent, KamranAudrey 01/28/2025 10:08:39 AM EST > Received fax f/u back and pt is scheduled on 03/02/25. Referral Priority Routine Referral Appointment Date 03/02/2025 Medications Medication SIG (Take, Route, Frequency, Duration) Notes Start Date End Date Status Tamsulosin HCl 0.4 MG Capsule 1 capsule Orally O nce a day; Duration: 90 days Not-Taking/PRNSulfamethoxazole-Trimethoprim 800-160 MG Tablet1 tablet Orally twice a day; Duration: 10 days09/08/2024Not-Taking/PRNAtorvastatin Calcium 40 MG Tablet1 tablet Orally Once a day; Duration: 90 days01/19/2025tivePotassium Chloride ER 20 MEQ Tablet Extended Release1 tablet with food Orally Once a day; Duration: 30 daysActiveFurosemide 20 MG Tablet1 tablet Orally Once a day; Duration: 90 daysActiveLovastatin 40 MG Tablet2 tablet with the evening meal Orally Once a day; Duration: 90 daysActive Immunizations Vaccine Route Administration Date Status Comme nts Influenza (split), 3 yrs and above OTH Other/Miscellaneous 12/08/2018 Administered Status:Complet e ,Reason:Given or N/A Influenza, quadrivalent, split, preservative free, 3 years or older IM Intramuscular 11/16/2020 Administered Status:Complet e ,Reason:Given or N/A Zoster OTH Other/Miscellaneous 11/13/2015 Administered Status:Complet e ,Reason:Given or N/A ,Site: LD Social History Tobacco Use: Social History Observation Description Date Details (start date - stop date) Former Smoker NA - NA Sex Assigned At : Social History Observation Description Sex Assigned At Male Social History Social DeterminantsSocial InfoQuestionAnswerNotesPRAPAREDate Completed/Updated: 07/08/2024patient entered dataWhat is your current housing situation?I have housingpatient entered dataAre you worried about losing your housing?No patient entered dataWhat is the highest level of school that you have finished?More than high schoolpatient entered dataWhat is your current work situation?Otherwise unemployed but not seeking work (ex. 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 Check all that applyI do not have problems meeting my needsHas lack of transportation kept you from medical appointments, meetings, work or from getting things needed for daily living?NoHow often do you see or talk to people that you care about and feel close to? (For example: talkingto friends on the phone, visiting friends or family, going to scientology or club meetings)I choose not to answer this questionpatient entered dataHow stressed are you? Stress is when someone feels tense, nervous, anxious, or can't sleep at nightbecause their mind is troubledA little bitpatient entered data In the past year have you spent more than 2 nights in a row in a [facility], longterm, [facility], orjuvenile correctional facility?Nopatient entered dataAre you a refugee?Nopatient entered dataWhat country are you from?[place] patient entered dataDo you feel physically and emotionally safe where you currently live?Yespatient entered dataIn the past year, have you been afraid of your partner or ex-partner?Nopatient entered dataPRAPARE Score:3PCMH and UDS DemographicsSocial InfoQuestionAnswerNotesPriSoutheast [facility] QuestionsDo you have any barriers to learning?Nonepatient entered dataWhat is your preferred method of learning?Doing or practicingpatient entered dataHow often do you need to have someone help you read instructions?Neverpatient entered dataHousehold:Social InfoQuestionAnswerNotesHouseholdNumber of adults in household:1Drugs/Alcohol/Caffeine:Social InfoQuestionAnswerNotesAlcohol Screen (Audit-C)Did you have a drink containing alcohol in the past year?NoPoints0 InterpretationNegativeDrugsHave you used drugs other than those for medical reasons in the past 12 months?NoCAGE-AID Questionnaire (2018 Edition)Have people annoyed you by criticizing your drinking or drug use?Nopatient entered data Have you ever felt bad or guilty about your drinking or drug use?Nopatient entered dataHave you ever had a drink or used drugs first thing in the morning to steady your nerves or to get rid of a hangover?Nopatient entered dataCAGE- AID Rpuut0AxxdrhowaxwconZjltnggxFbgswrntEeffrz:1-2 cups per dayTobacco Use: Social Urgent.lyQuestionAnswerNotesTobacco Control (Standard)Tobacco use:Former smokerTobacco Use/SmokingTobacco use:former smokerpatient entered data? How long has it been since you last smoked?> 10 yearspatient entered data? When did you start smoking?1969patient entered data? When did you stop smoking?10/21/1993patient entered dataTobacco use other than smoking:Are you an other tobacco user?cigarAdditional DetailsCategorySocial InfoOptionsDetails Miscellaneous:Occupation:retiredCulture/Language BarrierYesEducation Level CollegeBarriers to LearningNoneLearning PreferenceDoing or practicingHow often do you need to have someone help you read instructionsNeverSafetyPatient feels safe in relationshipsYes Problems Problem Type SNOMED Code ICD Code Onset Dates Problem Status W/U Status Risk Notes Problem Type II diabetes amarjit litus without complication (459453568) Type 2 diabetes mellitus without complication, without long-term current use of insulin (E11.9) ActiveconfirmedProblemModerate major depression (063998)Moderate major depression (F32.1)ActiveconfirmedProblemBMI 30+ - obesity (292201880)BMI 32.0- 32.9,adult (Z68.32)ActiveconfirmedProblemPeripheral venous insufficiency (39868996)Chronic venous stasis dermatitis (I87.2)ActiveconfirmedProblemDiabetic peripheral neuropathy (657319878)Diabetic peripheral neuropathy (E11.42)Active confirmedProblemIntermittent claudication (99346260)Intermittent claudication (I73.9)ActiveconfirmedProblemBenign prostatic hypertrophy without outflow obstruction (399616216)Benign prostatic hyperplasia, unspecified whether lower urinary tract symptoms present (N40.0)ActiveconfirmedProblemIron deficiency (28313641)Iron deficiency (E61.1)Activeconfirmed Comment:-pt was low on iron in 05/2020 -but recently got POC Hgb and it was 21 -will redraw labs today to confirm -f/u after testing, ProblemEssential hypertension (16011707)Essential hypertension (I10)Active confirmed Comment:-stopped amlodipine 10mg bc thinking it was contributing to lower extremity swelling -started lisinopril/HCTZ 10/12.5 at last visit -BP is high in office today - will increase to lisinopril/HCTZ 20/25mg PREVIOUS PLAN: -BP controlled in office today -pt is asymptomatic -Currently taking Amlodipine 10mg. Compliant with medication. But having increased leg swelling -Last CMP from endocrinology - 07/2017 - was normal -Will stop amlodipine and start lisinopril/HCTZ 10-12.5mg at this time -Counseled pt on lifestyle modifications including low salt diet and physical activity -Encouraged pt to take BP at home at least a couple times a week. -f/u in 2 weeks, ProblemBlurry vision (585697752)Blurry vision (H53.8)Activeconfirmed Comment:-pt complains of blurry vision intermittently -would like carotid duplex -states that it runs in his family. will order, ProblemPeripheral vascular disease (857698446)PVD (peripheral vascular disease) (I73.9)ActiveconfirmedComment:-changing order from venous duplex to ABIs for PVD,ProblemHyperlipidemia (14172542)Hyperlipidemia (E78.5)Activeconfirmed Comment:-pt has hx of HLD -Has been taking lovastatin 40 mg/day -Lipid panel pretty well controlled but cardio suggested that pt get LDL to below 70. Pt at 105 at last draw -will increase Lovastain to 80mg daily -Encouraged low fat/low cholesterol diet, regular physical activity -f/u in 3 months with labs before, ProblemInsomnia (981904199)Insomnia (G47.00)Activeconfirmed Comment:-Struggles with sleeping -Both sleep initiation and maintenance -Previously tried ambien; did not work -Doesnt want to try any other medications at moment -Discussed ARLEY assessment and sleep study; pt declined at the moment -Discussed concept of sleep hygiene; pt explains will stop eating late at night, ProblemCOPD - Chronic obstructive pulmonary disease (39365976)COPD (chronic obstructive pulmonary disease) (J44.9)Activeconfirmed Comment:feels symptoms are no longer present or bothersome advised to monitor for any increase SOB, cough, wheeze, etc to RTO with any concerns routine physical activity encouraged, ProblemTesticular hypofunction (977687373)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 pain has decreased a little bit -thinking muscle strain at this point and not a tear -will continue treating with muscle relaxer and anti-inflammatory at this time -rest. ice. heat -f/u as needed if shoulder does not continue to get better, ProblemBack pain (692990359)Back pain (M54.9)ActiveconfirmedProblemDisorder of skin AND/OR subcutaneous tissue (60255172)Skin lesion of face (L98.9)Active confirmed Comment:-pt has a skin lesion on the left side of his nose -has been there about 1 year -opens up and then heals and closes. but then opens again. has not healed all the way up since he first noticed it -will send to derm based on it not healing -for sampling -f/u with me as needed, ProblemLesion of tongue (781721384)Tongue lesion (K14.8)Activeconfirmed Comment:-pt has had white spots on tongue on a couple occasions now -not able to brush them off -they eventually resolve - but concerned that they keep coming -tried treating as thrush - but did not really help much -so will refer to ENT at this time for further evaluation -f/u with me as needed, ProblemErectile dysfunction (174126313)Erectile dysfunction (N52.9)Active confirmed Comment:-pt has hx of ED -viagra 100mg not working well for him now -will try to change to cialis 20mg to see if that helps more -f/u in 6 weeks, ProblemImpacted cerumen (73574554)Cerumen debris on tympanic membrane, bilateral (H61.23)Activeconfirmed Comment:Has sudden hearing loss on top of chronic one, concerning to me, cannot be explained just by cerumen Will refer to ENT, ProblemAbnormality of red blood cells (78504267)Decreased mean corpuscular volume (R71.8)ActiveconfirmedProblemDepression (490469419)Depression (F32.A) 02/11/2015Activeconfirmed Comment:-Still not taking cymbalta -Mood worsened mildly; not much -Overall doing ok -Not suicidal or homicidal -Doesnt want to restart cymbalta; doesnt want to see counselor -RTC in 4 months or sooner if needed, ProblemChronic low back pain (888043265)Chronic low back pain (M54.50)Active confirmed Comment:-pt has chronic low back pain -previously had surgery on his low back -can usually tolerate the pain - but lately it has been getting to him at times -pt has been getting 15 Percocet to help with the pain when he needs it. has been lasting pt about 1.5 months most of the time with his prescription -OARRS reviewed without issue when last sent script -a lot of his issue likely comes from heavy weight lifting in the past - strain on the low back -no flair ups since last visit - pt does have a script of flexeril to take when he does have a flair up -UDS from 08/2020 as expected -f/u in 3 months or sooner if needed, Vital Signs Heart Rate 46 /min 01/19/2025 Esteban Ariana 01/19/2025 02:46:05 PM EST > Temperature 98.1 degrees Fahrenheit 01/19/2025 Jos denis Ariana 01/19/2025 02:46:05 PM EST > Respiratory Rate 20 /min 01/19/2025 Esteban Alyrainer hayden 01/19/2025 02:46:05 PM EST > Blood pressure diastolic 65 mm Hg 01/19/2025 Ariana Ceja 01/19/2025 02:46:05 PM EST > Oximetry 98 % 01/19/2025 Ariana Orellana 01/19/2025 02:46:05 PM EST > Height-cm 180.34 cm 01/19/2025 Ariana Orellana 01/19/2025 02:46:05 PM EST > Weight-kg 109.77 kg 01/12/2025 Reyes Michele 01/12/2025 01:01:42 PM EST > Height 71.00 in 01/19/2025 Ariana Orellana 01/19/2025 02:46:05 PM EST > Blood pressure systolic 121 mm Hg 01/19/2025 Ariana Brooke 01/19/2025 02:46:05 PM EST > Weight 242 lbs 01/12/2025 Reyes Michele 01/12/2025 01:01:42 PM EST > BMI 33.75 kg/m2 01/12/2025 Reyes Michele 01/12/2025 01:01:42 PM EST > Encounters Encounter Location Date Provider Diagnosis [facility] [address], [place] [id number] 07/08/2024 Maura Segundo Cellulitis of right lower limb L03.115 and Right buttock pain M79.18 Main [address], [place] [id number] 09/08/2024 Maura Segundo Cellulitis of right lower limb L03.[address] [place], [place] [id number] 01/12/2025 Maura Segundo Chest discomfort R07 .89 ; Bilateral lower extremity edema R60.0 and Chronic venous stasis dermatitis I87.[address] [place], [place] [id number] 01/19/2025 Maura Segundo Chest discomfort R07 .89 ; Bilateral lower extremity edema R60.0 ; Hyperlipidemia E78.5 and Moderate major depression F32.[address] [place], [place] [id number] 07/10/2024 Maura Segundo Screening for prosta te cancer Z12.[address] [place], [place] [id number] 07/15/2024 Maura Segundo Right buttock pain M 79.[address] [place], [place] [id number] 09/10/2024 Maura Segundo [id number] [place], [place] [id number]/Ramsha [id number] [place], [place] [id number]/Ramsha [id number] [place], [place] [id number]/23/2025Ramsha AqeelHyperlipidemia, unspecified hyperlipidemia type E78.4[address] [place], [place] [id number]/24/2025Ramsha Segundo Hyperlipidemia, unspecified hyperlipidemia type E78.5 Assessments Encounter Date Diagnosis (ICD Code) Assessment Notes Treatment Notes Treatment Clinical Notes Section Notes 07/08/2024 Cellulitis of right lower limb ( ICD-10 - L03.115) Examination consistent with cellulitis. I will treat with antibiotics. Discussed reassuring vs non reassuring symptoms and when to call the office or go to ER. PVU07/10/2024Screening for prostate cancer (ICD-10 - Z12.5)07/15/2024Right buttock pain (ICD-10 - M79.18)09/08/2024ellulitis of right lower limb (ICD-10 - L03.115) Finding consistent with cellulitis. I will treat with Bactrim this time. Also will get ultrasound to rule out any other abnormality. IF symptoms not improving even after antibiotic might consider xray vs mri to rule out osteomyelitis due to recurrent symptoms. I will also increased lasix to 40 mg daily for 5 days then go back to his usual 20 mg daily dose after 5 days. Discussed reassuring vs nonreassuring symptoms and when to call the office or go to ER. PVU Advised to take potassium supplements while on higher dose of lasix. Advised to do 1 week f/u but reports [place] is going [place] of [place] 01/12/2025hest discomfort (ICD-10 - R07.89) Will rule out angina. Lexiscan ordered. Also referral to caridology placed for further evaluation. Discussed reassuring vs non reassuring symptoms and when to call the office or go to ER. PVU 01/19/2025hest discomfort (ICD-10 - R07.89) Advise to scheudle appt with project architect and schedule stress test. Information provided again today. Discussed reassuring vs non reassuring symptoms and when to call the office or go to ER. PVU 02/02/2025Hyperlipidemia, unspecified hyperlipidemia type (ICD-10 - E78.5) 02/03/2025Hyperlipidemia, unspecified hyperlipidemia type (ICD-10 - E78.5) 01/19/2025ilateral lower extremity edema (ICD-10 - R60.0)Improving. Continue with lasix and potassium zllllxsfepj2025ilateral lower extremity edema (ICD-10 - R60.0) Likely venous statsis. No concern of cellulitis. Previosuly on lasic will restart. f/u with labs in 1 week 07/08/2024Right buttock pain (ICD-10 - M79.18)Pt reports swelling I dont feel any swelling myself on exam. No tenderness but pt reports pain whenriding his bike. I will get ultrasound for further oyzozpukjy75/02/2025hronic venous stasis dermatitis (ICD-10 - I87.2)01/19/2025Hyperlipidemia (ICD-10 - E78.5)LDL elevated with his ongoing heart concern pt would benefit from statin more for preventive reasons. will start statin. Pt agrees.01/19/2025Moderate major depression (ICD-10 - F32.1) Pt decline management. offered [facility] referral but pt decline. Stable on current regimen. Advised If changes mind let us know or if having suicidal ideations or homicidal call 911 or go to ER. Plan Of Treatment Pending Test Test Name Order Date Lexiscan Stress Nuclear Test 01/12/2025 Next Appt Details Provider Name:Maura Raymond, 02/22/2025 02:30:00 PM, [address] [place], [id number], Insurance Providers Payer Name Payer Address Payer Phone Subscriber Number Group Number Insured Name Patient Relationship to Insured Coverage Start Date Coverage End Date [employer] [address] [place] [phone] [id number] [facility] Dami[facility] Vidal Self - patient is the insured Medical (General) History Medical History History ICD Code Back pain COPD (chronic obstructive pulmonary disease)DepressionDiabetes mellitus, type II HyperlipidemiaHypertensionMigraine HeadacheSurgical History Surgery Date(Month/Year) Tonsillectomy Back [id number] Surgery, rightHospitalization History Reason Date(Month/Year) see surgical hx
--- OUTSIDE RECORDS SUMMARY | 2025-02-09 15:29 | XMS_ITS | Clinical Summary ---
Author Organization [facility] Address [address], [address] [place] [address] Care Team Providers Care Grain Combiner Name Role Phone Sy Valdes PA-C Primary Care Provider [phone] Allergies No known active allergies Medications MedicationSigDispense QuantityRefillsLast FilledStart DateEnd DateStatus albuterol sulfate HFA (VENTOLIN HFA) 108 (90 Base) MCG/ACT inhaler INHALE 1 PUFF PO Q 4 TO 6 HOURS PRN FOR SOB OR DOSGTRZB98/10/2020Active amLODIPine (NORVASC) 5 MG tablet 0.5 zrkywjp8011/23/2016Active vitamin D3 (CHOLECALCIFEROL) 125 MCG (5000 UT) TABS tablet Take 1 tablet by mouth dailyActive cyclobenzaprine (FLEXERIL) 10 MG tablet Take 1 tablet by mouth daily as neededActive furosemide (LASIX) 40 MG tablet Take 0.5 tablets by mouth daily03/04/2019Active TRUE METRIX BLOOD GLUCOSE TEST strip USE DIRECTED ONCE DAILY11/20/2022ctive hydroCHLOROthiazide (HYDRODIURIL) 25 MG tablet Take 1 tablet by mouth daily03/22/2022ctive lovastatin (MEVACOR) 40 MG tablet Take 2 tablets by mouth mwjcjgx1011/23/2016Active Neomycin-Bacitracin Zn-Polymyx [phone] OINT APPLY 1/2 INCH TO THE RIGHT EYE EVERY MORNING AND EVERY NIGHT AT BEDTIME FOR 7 DAYS02/16/2023ctive oxyCODONE-acetaminophen (PERCOCET) 5-325 MG per tablet TAKE 1 TABLET BY MOUTH TWICE DAILY NEEDED. MUST LAST 30 DAYSActive tamsulosin (FLOMAX) 0.4 MG capsule 1 capsuleActive Testosterone 100 MG PLLT Inject 100 mg into the skin once. Max Daily Amount: 100 mgActive vitamin E 45 MG (100 UNIT) capsule Take 1 capsule by mouth dailyActive Social History Tobacco UseTypesPacks/DayYears UsedDateSmoking Tobacco: Never Assessed Interpersonal Safety Domain Source: IP Abuse ScreeningAnswerDate RecordedRead- Only, Retired: Physical MsftrLdmssa88/22/2024ead-Only, Retired: Verbal Abuse Htwakn2304/04/2023ead-Only, Retired: Emotional kbjnmJbncls57/22/2024ead-Only, Retired: Financial IqezsDtlpks46/22/2024ead-Only, Retired: Sexual abuseDenies 04/04/2023Sex and Gender InformationValueDate RecordedSex Assigned at BirthNot on fileLegal OykSwgx8104/02/2013 1:20 PM ESTGender IdentityNot on fileSexual OrientationNot on file Last Filed Vital Signs Vital SignReadingTime TakenCommentsBlood Vyhldabj487/77004/04/2023 4:32 PM EST Dytxj518904/04/2023 4:32 PM DZCAidigadebhq93.8 ??C (98.3 ??F)04/04/2023 4:32 PM ESTRespiratory Jgco831004/04/2023 4:32 PM ESTOxygen Mnokwnvxhv35%04/04/2023 4:32 PM ESTInhaled Oxygen Concentration--Tlbfnq519.3 kg (230 lb)04/04/2023 3:16 PM ELJXpaffs264.9 cm (6')04/04/2023 3:16 PM ESTBody Mass Index31.19004/04/2023 3:16 PM EST Plan of Treatment Health MaintenanceDue DateLast EkuwLhvuhjfnMfymkz12/22/1961Depression Screen 1962Hepatitis C kmviqn5710/02/1968DTaP/Tdap/Td vaccine (1 - Tdap)1969 Btqctfdvfvb72/22/1996Colorectal Cancer Hamxkz8210/03/1995FIT/FOBT: Average risk 10/03/1995Fecal-DNA (Cologuard): Average risk10/03/1995Sigmoidoscopy/CT qtojrijqmhco98/22/1996Pneumococcal 50+ years Vaccine (1 of 1 - PCV)2000 Shingles vaccine (2 of 3)Annual Wellness Visit (Medicare) 02/22/2023Flu vaccine (#1)/07/2020, 01/24/2017COVID-19 Vaccine ( season)/, 05/04/2020, 04/14/2020espiratory Syncytial Virus (RSV) or age 60 yrs+ (1 - 1-dose 75+ series)2025Hepatitis A vaccineAged OutNo longer eligible based on patient's age to complete this topic Hepatitis B vaccineAged OutNo longer eligible based on patient's age to complete this topicHib vaccineAged OutNo longer eligible based on patient's age to complete this topicMeningococcal (ACWY) vaccineAged OutNo longer eligible based on patient's age to complete this topicMeningococcal B vaccineAged OutNo longer eligible based on patient's age to complete this topicPolio vaccineAged OutNo longer eligible based on patient's age to complete this topic Insurance Care Teams Team MemberRelationshipSpecialtyStart DateEnd Sy Valdes PA-C [address] [place] [address] [facility]04/04/23
--- OUTSIDE RECORDS SUMMARY | 2025-02-09 15:29 | XMS_ITS | Clinical Summary ---
Author Organization [facility] Healthcare Address [address] [place] [address] Care Team Providers Care Patient Manager Name Role Phone Velma Heath ELECTRONIC DRAFTER Unavailable Allergies No known active allergies Medications MedicationSigDispense QuantityRefillsLast FilledStart DateEnd DateStatus amLODIPine (Norvasc) 5 MG tablet Take 5 mg by mouth DailyActive Ascorbic Acid (vitamin C) 100 MG tablet Take 100 mg by mouth DailyActive b complex vitamins capsule Take 1 capsule by mouth DailyActive cholecalciferol (Vitamin D-3) 125 MCG (5000 UT) capsule Take 5,000 Units by mouth DailyActive cyclobenzaprine (Flexeril) 10 MG tablet Take 5 mg by mouth 3 (three) times a day as needed for muscle spasmsActive furosemide (Lasix) 40 MG tablet Take by mouthActive hydroCHLOROthiazide (HYDRODiuril) 25 MG tablet Take 25 mg by mouth DailyActive lisinopril 30 MG tablet Take 30 mg by mouth DailyActive lovastatin (Mevacor) 40 MG tablet Take 40 mg by mouth at bedtimeActive Multiple Vitamin (multivitamin) tablet Take 1 tablet by mouth DailyActive omega-3 acid ethyl esters (Lovaza) 1 g capsule Take 1 g by mouth in the morning and 1 g before bedtime.Active omega-3 (FISH OIL) 300 MG capsule Take by mouth DailyActive potassium chloride CR (Klor-Con M20) 20 MEQ ER tablet Take 20 mEq by mouth Daily Do not crush or chew.Active tamsulosin (Flomax) 0.4 MG 24 hr capsule Take 0.4 mg by mouth DailyActive testosterone implant Inject under the skin 1 (one) timeActive albuterol HFA 90 mcg/act inhaler Inhale 2 puffs every 4 (four) hours if needed for wheezingActive alpha tocopherol (Vitamin E) 100 units capsule Take 100 Units by mouth DailyActive Neomycin-Bacitracin Zn-Polymyx [phone] ointment APPLY 1/2 INCH TO THE RIGHT EYE EVERY MORNING AND EVERY NIGHT AT BEDTIME FOR 7 DAYS4Active ammonium lactate (Amlactin) 12 % cream Indications:Corns and callositiesApply topically Daily 140 g 3066Active Active Problems No known active problems Immunizations ImmunizationAdministration DatesNext DueInfluenza, injectable, quadrivalent 12/08/2018Influenza, injectable, quadrivalent, preservative free11/16/2020 Influenza, trivalent, tnzjqcdubh34/14/2017Zoster, live11/13/2015 Family History Medical HistoryRelationNameCommentsArthritisFatherRheum arthritisMotherRelation NameStatusCommentsFatherDeceasedMotherDeceased Social History Tobacco UseTypesPacks/DayYears UsedDateSmoking Tobacco: FormerCigarettes Smokeless Tobacco: Never Tobacco Cessation:Counseling Given: Not Answered Alcohol UseStandard Drinks/WeekCommentsYes0 (1 standard drink = 0.6 oz pure alcohol)Sex and Gender InformationValueDate RecordedSex Assigned at BirthNot on fileLegal UccAnxz6404/25/2022 7:19 PM EDTGender IdentityNot on fileSexual OrientationNot on file Last Filed Vital Signs Vital SignReadingTime TakenCommentsBlood Kgjzewiv868/7204 12:00 PM EDT Pulse--Temperature--Respiratory Rate--Oxygen Saturation--Inhaled Oxygen Concentration--Bhwhgs499 kg (241 lb)07/22/2024 1:56 PM WKXGhvwyo352.3 cm (5' 11 )07/22/2024 1:56 PM EDTBody Mass Index33.61007/22/2024 1:56 PM EDT Plan of Treatment DateTypeDepartmentCare Team (Latest Contact Info)Xtbnwvdpwfl00/23/2026 10:45 AM ESTOffice Visit [facility] [address] [place] [address] Arnold Pappas PA [address] [place] [address] Health MaintenanceDue DateLast DoneCommentsCT Rczojtsjdxzo33/22/1951olonoscopy 1950olorectal Cancer Lmaemnlor63/22/1951FIT-DNA1950FIT1950 FOBT1950 3756Kiqalcuuemwmc39/22/1951neumococcal Vaccine: 65+ Years (1 of 1 - PCV)2000Influenza Vaccine (#1), 12/08/2018, 01/24/2017 Diabetes: Hemoglobin L1NGcstvvkoqugm34/16/2019, 07/03/2017 Insurance Care Teams Team MemberRelationshipSpecialtyStart DateEnd Date Velma Heath NP [address] [place] [address] Primary Care ProviderFamily Ecgmnxse19/28/24
--- OUTSIDE RECORDS SUMMARY | 2025-02-09 15:29 | XMS_ITS | Clinical Summary ---
Author Organization [facility] Address [address] [place] [address] Care Team Providers Care Wood Mill Supervisor Name Role Phone Torres MOYA MD, Nayan Ramirez Primary Care Provider Allergies No known active allergies Medications MedicationSigDispense QuantityRefillsLast FilledStart DateEnd DateStatus oxyCODONE-acetaminophen (PERCOCET) 7.5-325 mg tablet Take 1 tablet by mouth every 4 hours as needed for Pain.ctive [place]-3 Fatty Acids-Vitamin E (FISH OIL) 1,000 mg cap Take 1 capsule by mouth.ctive propranolol 20 mg tablet Take 1 tablet by mouth three times daily.ctive temazepam (RESTORIL) 30 mg cap Take 1 capsule by mouth at bedtime as needed.ctive multivitamin (MEN'S MULTI-VITAMIN) tablet Take 1 tablet by mouth once daily.Active aspirin 325 mg tablet Take 325 mg by mouth once daily.Active lovastatin 20 mg tablet Take 20 mg by mouth daily at bedtime.Active oxyCODONE 30 mg Tb12 Take 30 mg by mouth.Active MAGNESIUM HYDROXIDE/AL HYDROX ([place] ORAL) Take by mouth.Active testosterone (ANDROGEL) 25 mg/ 2.5g (1%) GlPk Apply 2.5 g to affected area once daily.Active DOXYLAMINE SUCCINATE (SLEEP AID ORAL) Take 50 mg by mouth. drugmart brand nightime sleep aid- diphenhydramine 50mg Active LISINOPRIL 20 mg tablet Take 20 mg by mouth once daily.03/24/2012ctive LORazepam 0.5 mg Tab Take 1 tablet by mouth as directed. 5 tablet ctive Active Problems ProblemNoted DateDiagnosed DatePulmonary rrhtmm9804/08/2012Low testosterone 03/18/20126622Kjvwjevuwkjx15/05/4090Slmauebjlgga89/05/2013 Social History Tobacco UseTypesPacks/DayYears UsedDateSmoking Tobacco: QalffbYpyrrlczlo0Nmhw: 02/11/1993CigarsSmokeless Tobacco: NeverAlcohol UseStandard Drinks/WeekComments Yes0 (1 standard drink = 0.6 oz pure alcohol)rarelySex and Gender Information ValueDate RecordedSex Assigned at BirthNot on fileLegal AwiZfzy37/02/2012 10:05 AM ESTGender IdentityNot on fileSexual OrientationNot on file Last Filed Vital Signs Vital SignReadingTime TakenCommentsBlood Ugfgrojc857/7408/05/2012 1:04 PM EDT Vulxd934508/05/2012 1:04 PM EDTTemperature--Respiratory Rate--Oxygen Saturation-- Inhaled Oxygen Concentration--Nldznl323.4 kg (291 lb 12.8 oz)08/05/2012 1:04 PM NKYNmnrre373.9 cm (6' 0.01 )08/05/2012 1:04 PM EDTBody Mass Index39.5706 1:04 PM EDT Plan of Treatment Health MaintenanceDue DateLast DoneCommentsAbdominal Aortic Aneurysm Screening 1Anxiety Rnzzmprgi81/22/1969Depression Bldbxnrug52/22/1969Hepatitis C Drzksmgpj44/22/1969DTaP,Tdap,Td Vaccine (1 - Tdap)1969CT Colonography 10/03/1995Cologuard (FIT-DNA)10/03/19957025Ggwjxjpfyem01/22/1996Colorectal Cancer Jefwdwhhp35/22/1996Fecal Occult Blood10/03/19957874Awktspucgzzsh44/22/1996 Pneumococcal Vaccine: 50+ (1 of 1 - PCV)2000Shingrix Vaccine (1 of 2) 2000Diabetes Owlwurdnu82, 03/18/2012Lipid Screening dvance Directive Amoyjfvtbl46/01/2025ovid-19 Vaccine ( - 2024- season)2024Influenza Vaccine (#1)2024RSV Vaccine (1 - 1-dose 75+ series)2025 Procedures Procedure NamePriorityDate/TimeAssociated DiagnosisCommentsCOMPREHENSIVE METABOLIC WWLIYVtbmrgz41/05/2013 11:57 AM EST LIPID PANEL, XKHQMBSQprnxed89/05/2013 11:57 AM EST from Last 3 Months or Most Recently Relevant to Health Maintenance Results * (ABNORMAL) LIPID PANEL BASIC (03/18/2012 11:57 AM EST)ComponentValueRef Range Test MethodAnalysis TimePerformed AtPathologist CejwnmzprIjuvycwrxwqm850(H)30 - 149 mg/dLMOUNT [facility] LABORATORYCholesterol, Rrvzw640158 - 199 mg/dLMOUNT [facility]MEL [facility] LABORATORYHDL Tlfhwryawnb33(L)>45 mg/dLMOUNT [facility] LABORATORYVLDL Yovnoqvwbto114 - 40 mg/dLMOUNT [facility] LABORATORYLDL Cholesterol, Lblmwrhmjx1075 - 129 mg/dLMOUNT [facility] LABORATORYFasting TimeUnknownhrsMOUNT [facility] LABORATORYTC:HDL Ratio 4.931.00 - 5.00[facility] LABORATORYLDL:HDL Ratio2.540.50 - 3.55 [facility]ORYNon HDL Bxrlrzgziud80916 - 159 mg/dLMOUNT CARMEL [facility] SYSTEM LABORATORYSpecimen (Source)Anatomical Location / Laterality Collection Method / VolumeCollection TimeReceived Time03/18/2012 11:57 AM EST 03/18/2012 12:00 PM EST Narrative Authorizing ProviderResult TypeResult StatusSteven G RoshonLABORATORYFinal ResultPerforming OrganizationAddressCity/State/ZIP CodePhone Number [facility] [address] [place] [address] * (ABNORMAL) COMP METABOLIC PANEL (03/18/2012 11:57 AM EST)ComponentValueRef RangeTest MethodAnalysis TimePerformed AtPathologist SignatureProtein, Total 7.16.0 - 8.4 g/dLMOUNT [facility] LABORATORYAlbumin4.33.5 - 5.0 g/dL [facility] LABORATORYCalcium9.68.5 - 10.5 mg/dLMOUNT [facility] LABORATORYBilirubin, Total0.30.0 - 1.5 mg/dLMOUNT [facility] LABORATORYAlkaline Kstscryvmwl7577 - 150 U/LC[facility] LYR732 - 40 U/LC[facility] EGTQWOTCYORbvlhft3430 - 100 mg/dL [facility] ROGQKDYNUTHPS8976 - 25 mg/dLM[facility] LABORATORYCreatinine0.850.70 - 1.40 mg/dLMOUNT [facility] Danavc573084 - 146 mmol/LCV[facility] LABORATORYPotassium4.53.5 - 5.0 mmol/LCV[facility] WJDUBIRRRTSvehozta29753 - 110 mmol/LC[facility] CIMXGRXFGOBB974(L)23 - 32 mmol/LCV[facility] LABORATORY Anion Gap17(H)0 - 15 mmol/LCV[facility] OBWXJOTAWFBGS674 - 50 U/L [facility] LABORATORYeGFR->60[facility] LABORATORYeGFR-All Other Races>60.[facility] LABORATORYComment: eGFR (Estimated GFR) Units of measure: mL/min/1.73 meters squared eGFR is derived from the reexpressed MDRD Study equation using the following parameters: serum creatinine, age, gender and race. The creatinine assay has been calibrated to be traceable to IDMS. An eGFR <60 mL/min/1.73m2 for >3 months is consistent with chronic kidney disease. Refer to KDOQI guidelines for clinical interpretation. Specimen (Source)Anatomical Location / LateralityCollection Method / Volume Collection TimeReceived Time03/18/2012 11:57 AM EST03/18/2012 12:00 PM EST Narrative Authorizing ProviderResult TypeResult StatusSteven G RoshonLABORATORYFinal ResultPerforming OrganizationAddressCity/State/ZIP CodePhone Number [facility] [address] [place] [address] from Last 3 Months or Most Recently Relevant to Health Maintenance Insurance * Guarantor: Damián Beauchamp TypeRelation to PatientDate of BirthPhone Billing AddressSelf EjqMamw40 1950 [address] [place] [address] Care Teams Team MemberRelationshipSpecialtyStart DateEnd Nayan Macdonald II, MD PCP - GeneralFamily Medicine03/11/12
--- NOTE | 2025-02-09 15:36 | MR_ITS ---
The [address] [address] Patient Name: JAVIER BEAUCHAMP MRN: [id number] date: 1950 Sex: M Assigned Patient Location: MRI Current Patient Location: Accession/Order Number: [id number] Exam Date: 02/09/2025 16:00 Report Date: 02/10/2025 00:08 At the request of: OFELIA CONNELL Procedure: MR lumbar spine wo con MR lumbar spine wo con 02/09/2025 4:38 PM SIGNS AND SYMPTOMS: Chronic low back pain PROTOCOL: Multiplanar multisequence MR images of the lumbar spine without IV contrast COMPARISON: 12/31/2023 FINDINGS: The bones of the lumbar spine are in anatomic alignment. There is preservation of vertebral body heights. There is posterior and intervertebral fusion from L4 through S1. There is disc desiccation and mild disc height loss at T12 there is a benign-appearing hemangioma within the T12 vertebral body similar to the prior exam. The conus terminates at the mid L1 vertebral body level. No epidural or paraspinous fluid collection is appreciated. Uncomplicated colonic diverticula are noted. Simple cysts are noted in the renal cortices requiring no further follow-up. At T12-L1: There is a normal disc, central canal, and neural foramen. At L1-L2: Facet hypertrophy is present bilaterally with ligamentum flavum thickening. There is mild bilateral neural foraminal narrowing without significant spinal canal narrowing. This is unchanged. At L2-L3: There is a circumferential disc bulge with facet hypertrophy and ligamentum flavum thickening. There is moderate spinal canal stenosis with moderate bilateral neural foraminal narrowing. This is similar to the prior exam. At L3-L4: There is facet hypertrophy with ligamentum flavum thickening. There is mild bilateral neural foraminal narrowing with mild spinal canal narrowing. At L4-L5: There is posterior and intervertebral fusion with facet hypertrophy contributing to mild bilateral neural foraminal narrowing. This is similar to the prior exam. At L5-S1: There is posterior and intervertebral fusion with facet hypertrophy. There is mild bilateral neural foraminal narrowing with no significant spinal canal narrowing. MR/MR lumbar spine wo con IMPRESSION: At L2-L3: There is a circumferential disc bulge with facet hypertrophy and ligamentum flavum thickening. There is moderate spinal canal stenosis with moderate bilateral neural foraminal narrowing. This is similar to the prior exam. Additional lesser degrees of degenerative change is redemonstrated as above. Posterior and intervertebral fusion hardware is redemonstrated from L4 through S1. Impression dictated by: Trino Hanks M.D. 02/10/2025 12:08 AM Dictation Location: [place] [address] Electronically authenticated by: [id number] Y Date: 02/10/2025 00:08
== END 2025-02-09 15:21 | disposition home or self-care (01) ==
LOC: MRI 15:26
PROVIDERS: PCP Physician Assistant; Visit Provider Physician Assistant
DX: M96.1 Postlaminectomy syndrome, not elsewhere classified (principal); M47.816 Spondylosis without myelopathy or radiculopathy, lumbar region; M53.3 Sacrococcygeal disorders, not elsewhere classified; M51.369 Other intervertebral disc degeneration, lumbar region without mention of lumbar back pain or lower extremity pain
CPT/HCPCS: 72148